=== PATIENT | female | born 1960 | race Hispanic/Latino ===

== ENCOUNTER → 2017-10-24 | Outpatient (CLI) | payer OTHER ==
--- NOTE | 2017-10-24 13:28 | Diagnostic Imaging Report ---
PROCEDURE:X-RAY RIGHT SHOULDER, COMPLETE COMPARISON:None. INDICATIONS:RIGHT SHOULDER PAIN FINDINGS: There is an acute, comminuted predominantly transverse fracture involving the surgical neck of the right humerus with extension to the greater tuberosity. Acromioclavicular and glenohumeral joint spaces are intact. No evidence of glenohumeral dislocation. The distal humerus is intact. Partially visualized elbow joint space is well-maintained. CONCLUSION: Acute, comminuted though minimally displaced fracture involving the surgical neck and greater tuberosity of the right humerus with overlying soft tissue swelling. Findings were discussed by telephone with Dr. Fish at 1:30 PM 10/24/2017. The patient was instructed to proceed to Dr. Fish's office for further evaluation. Dictated by: Gallo Paez M.D. on 10/24/2017 at 13:37 Electronically approved by: Gallo Paez M.D. on 10/24/2017 at 13:37
--- NOTE | 2017-10-24 13:29 | Diagnostic Imaging Report ---
PROCEDURE:X-RAY RIGHT HUMERUS, TWO OR MORE VIEWS COMPARISON:None. INDICATIONS:RIGHT SHOULDER PAIN CONCLUSION: For full dictated report refer to "SHOULDER RIGHT COMPLETE" also performed 10/24/2017. Dictated by: Gallo Paez M.D. on 10/24/2017 at 13:37 Electronically approved by: Gallo Paez M.D. on 10/24/2017 at 13:37
== END ==
LOC: RAD 12:10
PROVIDERS: ATTEND Internal Medicine
DX: M25.511 Pain in right shoulder (principal); W19.XXXA Unspecified fall, initial encounter